=== PATIENT | male | born 1945 | race Caucasian/White ===

== ENCOUNTER 2021-05-12 13:41 | Outpatient (CLI) | payer MEDICARE, OTHER, SELFPAY ==
--- NOTE | ~2021-05-12 | US_ITS ---
EXAMINATION: US art doppler w press LE BI DATE: 05/12/2021 14:42 INDICATION: Bilateral lower limb pain/claudication. TECHNIQUE: Segmental pressures and plethysmographic and Doppler waveforms of the brachial and lower e xtremity arteries were obtained. COMPARISON: None. FINDINGS: Right and left brachial artery pressures of 126 mm Hg and 137 mm Hg, respectively, are concordant (no rmal difference <= 30 mmHg). The right high-thigh pressure index is 1.29 (normal > 1.2). The left hig h thigh pressure index is unable to be obtained due to inability to occlude the vessels throughout th e left thigh and proximal calf. The right ankle-brachial index (OMKAR) is 1.42 (normal >= 0.9-1). The right great toe-brachial index (T BI) is 0.91 (normal >= 0.6-0.8). The right lower extremity segmental pressure gradients are normal (n ormal gradients <= 20-30 mmHg between adjacent levels on the same leg or the same levels on the two l egs). Arterial waveforms are triphasic at the right common femoral and posterior tibial arteries and biphasic at the right femoral, popliteal and dorsalis pedis arteries, all with brisk systolic upstrok es. The left OMKAR is 1.31. The left TBI is 0.81. The left lower extremity segmental pressure gradients wer e unable to be assessed due to inability to occlude the majority of the vessels in the left lower hercules b. Arterial waveforms are triphasic at the left common femoral and femoral arteries and biphasic in t he more distal arteries with brisk systolic upstrokes throughout. IMPRESSION: 1. Normal OMKAR's and TBI's bilaterally. No significant occlusive disease. Reviewed, dictated and finalized at location B. [employer]
== END 2021-05-12 13:42 | disposition home or self-care (01) ==
LOC: ANHIMG 13:49
PROVIDERS: PCP Internal Medicine; Visit Provider Internal Medicine Cardiovascular Disease
DX: I73.9 Peripheral vascular disease, unspecified (principal); M79.606 Pain in leg, unspecified
CPT/HCPCS: 93923